=== PATIENT | male | born 1955 | race African-American/Black ===

== ENCOUNTER 2020-03-31 14:28 | Inpatient (IN) | payer BC, OTHER ==
[2020-03-31 15:25] VITALS: BMI 37.0
[2020-03-31] MEDS ORDERED: DEXAMETHASONE SOD PHOSPHATE 4 MG/1 ML VIAL IVPUSH ONE (16:02)
[2020-03-31 16:18] LABS: BASO % 0.3 % (0-2.0); HEMATOCRIT 41.7 % (35.4-49); HEMOGLOBIN 13.5 GM/dL (11.7-16.9); LYMPH % 33.4 % (8-40); MCH 28.3 pg (25.7-33.7); MCHC 32.5 g/dl (32.0-35.9); MEAN CELL VOLUME 87.3 fl (80-96); MEAN PLT VOLUME 7.8 fl (7.5-11.1); MONO % 13.4 % (3.8-10.2); NEUT % 52.9 % (42.8-82.8); PLATELET COUNT 198 K/MM3 (134-434); RBC 4.78 M/mm3 (4.00-5.60); RDW 14.4 % (11.9-15.9); VENOUS PCO2 52.3 mmHg (38-52); VENOUS PH 7.382 (7.310-7.410); WHITE BLOOD COUNT 5.7 K/mm3 (4.0-10.0)
[2020-03-31 16:33] LABS: INR 1.21 (0.83-1.09); PROTHROMBIN TIME (PATIENT) 14.6 SEC (9.7-13.0)
[2020-03-31 16:43] LABS: N-TERMINAL BNP 180.2 pg/ml (5-125)
[2020-03-31 16:48] LABS: ALBUMIN 3.5 g/dl (3.4-5.0)
[2020-03-31 16:53] LABS: BILIRUBIN,TOTAL 0.4 mg/dL (0.2-1); CREATININE 1.8 mg/dL (0.55-1.3); TOT PROT 7.5 g/dl (6.4-8.2)
[2020-03-31] MEDS ORDERED: SODIUM CHLORIDE 0.9% 500 ML INFUS.BAG IV ONE (17:07)
[2020-03-31] MEDS ORDERED: POTASSIUM CHLORIDE ORAL LIQUID 20 MEQ/15 ML PO ONE (17:09)
[2020-03-31] MEDS ORDERED: ACETAMINOPHEN 500 MG TABLET (FP) PO ONE (17:23)
[2020-03-31] MEDS ORDERED: ACETAMINOPHEN 325 MG TABLET (FP) ONE (17:25)
[2020-03-31] MEDS ORDERED: POTASSIUM CHLORIDE ORAL LIQUID 20 MEQ/15 ML ONE (18:18)
[2020-03-31] MEDS ORDERED: SODIUM CHLORIDE 500 ML IV STA (19:18)
[2020-03-31] MEDS ORDERED: ACETAMINOPHEN 325 MG TABLET (FP) PO PRN (19:18)
[2020-03-31] MEDS ORDERED: HEPARIN NA (PORCINE) 5,000 UNITS/ML 1ML VIAL ONE (20:35)
[2020-03-31] MEDS ORDERED: ZINC SULFATE 220 MG CAPSULE (FP) ONE (20:35)
[2020-03-31] MEDS ORDERED: AMPICILLIN NA/SULBACTAM NA 3 GM in SODIUM CHLORIDE 100 ML IVPB SCH (21:00)
[2020-03-31] MEDS ORDERED: ASCORBIC ACID 500 MG TABLET (FP) ONE (21:39)
[2020-03-31] MEDS: CHOLECALCIFEROL (VIT D3) 400 UNIT (10 MCG) TABLET PO SCH (21:46)
[2020-03-31] MEDS: ZINC SULFATE 220 MG CAPSULE (FP) PO SCH (21:46)
[2020-03-31] MEDS: ASCORBIC ACID 500 MG TABLET (FP) PO SCH (21:47)
[2020-03-31] MEDS: HEPARIN NA (PORCINE) 5,000 UNITS/ML 1ML VIAL SQ SCH (21:47)
[2020-03-31] MEDS ORDERED: CLINDAMYCIN 600MG PREMIX IVPB 600 MG/50 ML BAG IVPB ONE (23:35)
[2020-03-31] MEDS: CLINDAMYCIN 600MG PREMIX IVPB 600 MG/50 ML BAG IVPB SCH (23:36)
[2020-04-01 01:26] LABS: BLOOD UREA NITROGEN 27.5 mg/dL (7-18); CALCIUM 7.8 mg/dL (8.5-10.1)
[2020-04-01 01:30] LABS: CREATININE 1.6 mg/dL (0.55-1.3)
[2020-04-01] MEDS ORDERED: CLINDAMYCIN 600MG PREMIX IVPB 600 MG/50 ML BAG IVPB ONE ×2 (02:09→08:12)
[2020-04-01] MEDS ORDERED: SODIUM CHLORIDE 500 ML IV STA (02:09)
[2020-04-01] MEDS: CLINDAMYCIN 600MG PREMIX IVPB 600 MG/50 ML BAG IVPB SCH ×3 (03:08→12:15)
[2020-04-01 03:20] LABS: EPI CELLS 9 /uL (0-25.1); HYALINE CASTS 7 /uL (0-3.1); URINE APPEARANCE CLEAR; URINE BACTERIA 17 /uL (0-1359); URINE BILIRUBIN NEGATIVE (NEGATIVE); URINE COLOR YELLOW; URINE GLUCOSE (UA) NEGATIVE (NEGATIVE); URINE KETONE NEGATIVE (NEGATIVE); URINE LEUK ESTERASE NEGATIVE (NEGATIVE); URINE NITRITE NEGATIVE (NEGATIVE); URINE PROTEIN 2+ (NEGATIVE); URINE RBC 8 /uL (0-23.9); URINE WBC 11 /uL (0-25.8)
[2020-04-01] MEDS ORDERED: HEPARIN NA (PORCINE) 5,000 UNITS/ML 1ML VIAL ONE (05:36)
[2020-04-01] MEDS: HEPARIN NA (PORCINE) 5,000 UNITS/ML 1ML VIAL SQ SCH ×3 (06:22→21:54)
[2020-04-01 06:50] LABS: BASO % 0.1 % (0-2.0); HEMATOCRIT 39.9 % (35.4-49); HEMOGLOBIN 13.2 GM/dL (11.7-16.9); LYMPH % 25.9 % (8-40); MCH 28.9 pg (25.7-33.7); MCHC 33.1 g/dl (32.0-35.9); MEAN CELL VOLUME 87.2 fl (80-96); MEAN PLT VOLUME 7.4 fl (7.5-11.1); MONO % 10.5 % (3.8-10.2); NEUT % 63.5 % (42.8-82.8); PLATELET COUNT 188 K/MM3 (134-434); RBC 4.58 M/mm3 (4.00-5.60); RDW 14.4 % (11.9-15.9); WHITE BLOOD COUNT 5.1 K/mm3 (4.0-10.0)
[2020-04-01 06:54] LABS: ALBUMIN 3.3 g/dl (3.4-5.0); BLOOD UREA NITROGEN 27.6 mg/dL (7-18); CALCIUM 7.8 mg/dL (8.5-10.1); MAGNESIUM 2.3 mg/dL (1.8-2.4)
[2020-04-01 06:57] LABS: CREATININE 1.4 mg/dL (0.55-1.3); PHOSPHOROUS 3.7 mg/dL (2.5-4.9)
[2020-04-01 06:58] LABS: BILIRUBIN,TOTAL 0.4 mg/dL (0.2-1); TOT PROT 7.4 g/dl (6.4-8.2)
[2020-04-01] MEDS ORDERED: DEXAMETHASONE SOD PHOSPHATE 10 MG/1 ML VIAL ONE (08:11)
[2020-04-01] MEDS ORDERED: ZINC SULFATE 220 MG CAPSULE (FP) ONE (08:11)
[2020-04-01] MEDS ORDERED: CHOLECALCIFEROL (VIT D3) 1,000 UNIT (25 MCG) TABLET ONE (08:12)
[2020-04-01] MEDS: MAG HYDROX/ALH/SMC/DPHA/LIDO 240 ML MOUTHWASH MM SCH ×3 (08:15→18:41)
[2020-04-01] MEDS ORDERED: ASCORBIC ACID 500 MG TABLET (FP) ONE (08:16)
[2020-04-01] MEDS ORDERED: DIPHTH,PERTUSS(ACELL),TET 0.5 ML DISP.SYRIN IM ONE (08:18)
[2020-04-01] MEDS: CHOLECALCIFEROL (VIT D3) 400 UNIT (10 MCG) TABLET PO SCH (09:05)
[2020-04-01] MEDS: ASCORBIC ACID 500 MG TABLET (FP) PO SCH ×2 (09:05→21:48)
[2020-04-01] MEDS: ZINC SULFATE 220 MG CAPSULE (FP) PO SCH (09:05)
[2020-04-01] MEDS: DEXAMETHASONE SOD PHOSPHATE 4 MG/1 ML VIAL IVPUSH SCH (09:05)
[2020-04-01] MEDS ORDERED: CLINDAMYCIN 600MG PREMIX IVPB 600 MG/50 ML BAG IVPB SCH (10:15)
[2020-04-01] MEDS ORDERED: VANCOMYCIN HCL 1,500 MG in DEXTROSE 5%-WATER - 500 ML IVPB ONE (11:00)
[2020-04-01] MEDS: ASPIRIN 81 MG CHEWABLE TABLETS PO SCH (12:15)
[2020-04-01] MEDS ORDERED: REMDESIVIR 200 MG in SODIUM CHLORIDE 210 ML IVPB ONE (17:00)
[2020-04-01] MEDS ORDERED: PT OWN MED DRAWER 7, Y5N ONE (21:21)
[2020-04-01] MEDS ORDERED: VANCOMYCIN 1,250 MG in DEXTROSE 5%-WATER - 250 ML IVPB SCH (23:00)
[2020-04-02] MEDS: CLINDAMYCIN 600MG PREMIX IVPB 600 MG/50 ML BAG IVPB SCH ×5 (01:00→20:29)
[2020-04-02] MEDS: MAG HYDROX/ALH/SMC/DPHA/LIDO 240 ML MOUTHWASH MM SCH ×4 (02:41→17:01)
[2020-04-02] MEDS: HEPARIN NA (PORCINE) 5,000 UNITS/ML 1ML VIAL SQ SCH ×3 (06:26→21:03)
[2020-04-02 07:54] LABS: BASO % 0.1 % (0-2.0); LYMPH % 28.9 % (8-40); MCH 29.3 pg (25.7-33.7); MCHC 33.3 g/dl (32.0-35.9); MEAN CELL VOLUME 87.8 fl (80-96); MEAN PLT VOLUME 7.6 fl (7.5-11.1); MONO % 8.6 % (3.8-10.2); NEUT % 62.4 % (42.8-82.8); PLATELET COUNT 188 K/MM3 (134-434); RBC 4.44 M/mm3 (4.00-5.60); RDW 14.2 % (11.9-15.9); WHITE BLOOD COUNT 7.3 K/mm3 (4.0-10.0)
[2020-04-02 07:58] LABS: ALBUMIN 3.1 g/dl (3.4-5.0); BLOOD UREA NITROGEN 21.6 mg/dL (7-18)
[2020-04-02 07:59] LABS: MAGNESIUM 2.2 mg/dL (1.8-2.4)
[2020-04-02 08:00] LABS: CREATININE 1.2 mg/dL (0.55-1.3); PHOSPHOROUS 2.5 mg/dL (2.5-4.9)
[2020-04-02 08:01] LABS: BILIRUBIN,TOTAL 0.5 mg/dL (0.2-1)
[2020-04-02 08:03] LABS: TOT PROT 6.9 g/dl (6.4-8.2)
[2020-04-02] MEDS: ASPIRIN 81 MG CHEWABLE TABLETS PO SCH (09:34)
[2020-04-02] MEDS: ZINC SULFATE 220 MG CAPSULE (FP) PO SCH (09:34)
[2020-04-02] MEDS: CHOLECALCIFEROL (VIT D3) 400 UNIT (10 MCG) TABLET PO SCH (09:34)
[2020-04-02] MEDS: ASCORBIC ACID 500 MG TABLET (FP) PO SCH ×2 (09:35→21:03)
[2020-04-02] MEDS: DEXAMETHASONE SOD PHOSPHATE 4 MG/1 ML VIAL IVPUSH SCH (10:00)
[2020-04-02] MEDS ORDERED: PT OWN MED DRAWER 7, Y5N ONE (16:21)
[2020-04-02] MEDS: REMDESIVIR 100 MG in SODIUM CHLORIDE 230 ML IVPB SCH (16:57)
[2020-04-02] MEDS: FAMOTIDINE 20 MG TABLET PO SCH (21:03)
[2020-04-03] MEDS ORDERED: PT OWN MED DRAWER 7, Y5N ONE ×5 (00:09→16:38)
[2020-04-03] MEDS: CLINDAMYCIN 600MG PREMIX IVPB 600 MG/50 ML BAG IVPB SCH ×4 (00:10→17:57)
[2020-04-03] MEDS: MAG HYDROX/ALH/SMC/DPHA/LIDO 240 ML MOUTHWASH MM SCH ×4 (00:10→17:57)
[2020-04-03] MEDS: HEPARIN NA (PORCINE) 5,000 UNITS/ML 1ML VIAL SQ SCH ×3 (05:54→21:24)
[2020-04-03 07:15] LABS: HEMATOCRIT 38.2 % (35.4-49); HEMOGLOBIN 12.9 GM/dL (11.7-16.9); MCH 29.5 pg (25.7-33.7); MCHC 33.6 g/dl (32.0-35.9); MEAN CELL VOLUME 87.6 fl (80-96); MEAN PLT VOLUME 7.7 fl (7.5-11.1); PLATELET COUNT 210 K/MM3 (134-434); RBC 4.36 M/mm3 (4.00-5.60); RDW 14.1 % (11.9-15.9); WHITE BLOOD COUNT 5.8 K/mm3 (4.0-10.0)
[2020-04-03 07:26] LABS: BLOOD UREA NITROGEN 22.9 mg/dL (7-18); CALCIUM 7.5 mg/dL (8.5-10.1)
[2020-04-03 07:27] LABS: MAGNESIUM 2.3 mg/dL (1.8-2.4)
[2020-04-03 07:29] LABS: PHOSPHOROUS 3.8 mg/dL (2.5-4.9)
[2020-04-03 07:31] LABS: BILIRUBIN,TOTAL 0.4 mg/dL (0.2-1)
[2020-04-03 07:32] LABS: TOT PROT 6.9 g/dl (6.4-8.2)
[2020-04-03] MEDS: ASPIRIN 81 MG CHEWABLE TABLETS PO SCH (09:14)
[2020-04-03] MEDS: DEXAMETHASONE SOD PHOSPHATE 4 MG/1 ML VIAL IVPUSH SCH (09:14)
[2020-04-03] MEDS: TORSEMIDE 10 MG TABLET PO SCH (09:15)
[2020-04-03] MEDS: CHOLECALCIFEROL (VIT D3) 400 UNIT (10 MCG) TABLET PO SCH (09:15)
[2020-04-03] MEDS: ASCORBIC ACID 500 MG TABLET (FP) PO SCH ×2 (09:15→21:24)
[2020-04-03] MEDS: ZINC SULFATE 220 MG CAPSULE (FP) PO SCH (09:15)
[2020-04-03] MEDS: LOSARTAN 50MG/HCTZ 12.5MG 1 TAB PO SCH (09:15)
[2020-04-03] MEDS: FAMOTIDINE 20 MG TABLET PO SCH ×2 (09:20→21:24)
[2020-04-03] MEDS: REMDESIVIR 100 MG in SODIUM CHLORIDE 230 ML IVPB SCH (16:42)
[2020-04-04] MEDS: MAG HYDROX/ALH/SMC/DPHA/LIDO 240 ML MOUTHWASH MM SCH ×4 (00:08→17:52)
[2020-04-04] MEDS: CLINDAMYCIN 600MG PREMIX IVPB 600 MG/50 ML BAG IVPB SCH ×3 (00:09→13:02)
[2020-04-04] MEDS: HEPARIN NA (PORCINE) 5,000 UNITS/ML 1ML VIAL SQ SCH (05:52)
[2020-04-04] MEDS: ASPIRIN 81 MG CHEWABLE TABLETS PO SCH (10:15)
[2020-04-04] MEDS: LOSARTAN 50MG/HCTZ 12.5MG 1 TAB PO SCH (10:15)
[2020-04-04] MEDS: ZINC SULFATE 220 MG CAPSULE (FP) PO SCH (10:15)
[2020-04-04] MEDS: ASCORBIC ACID 500 MG TABLET (FP) PO SCH ×2 (10:15→22:29)
[2020-04-04] MEDS: DEXAMETHASONE SOD PHOSPHATE 4 MG/1 ML VIAL IVPUSH SCH (10:16)
[2020-04-04] MEDS: FAMOTIDINE 20 MG TABLET PO SCH ×2 (10:16→22:29)
[2020-04-04] MEDS: CHOLECALCIFEROL (VIT D3) 400 UNIT (10 MCG) TABLET PO SCH (10:16)
[2020-04-04] MEDS: TORSEMIDE 10 MG TABLET PO SCH (10:16)
[2020-04-04] MEDS ORDERED: PT OWN MED DRAWER 7, Y5N ONE ×2 (11:52→18:36)
[2020-04-04] MEDS ORDERED: metoPROLOL SUCCINATE 25 MG TAB.SR.24H (FP) PO ONE (14:30)
[2020-04-04] MEDS ORDERED: METOPROLOL TARTRATE 5 MG/5 ML VIAL IVPUSH ONE (16:47)
[2020-04-04] MEDS: REMDESIVIR 100 MG in SODIUM CHLORIDE 230 ML IVPB SCH (17:52)
[2020-04-04] MEDS ORDERED: METOPROLOL TARTRATE 25 MG TABLET (FP) PO ONE (17:56)
[2020-04-04] MEDS: APIXABAN 5 MG TABLET PO SCH (22:29)
[2020-04-04] MEDS: CLINDAMYCIN HCL 150 MG CAPSULE (FP) PO SCH (22:30)
[2020-04-05] MEDS: MAG HYDROX/ALH/SMC/DPHA/LIDO 240 ML MOUTHWASH MM SCH ×4 (00:30→17:16)
[2020-04-05] MEDS ORDERED: PT OWN MED DRAWER 7, Y5N ONE ×6 (06:05→17:14)
[2020-04-05] MEDS: CLINDAMYCIN HCL 150 MG CAPSULE (FP) PO SCH ×3 (06:36→21:53)
[2020-04-05 07:05] LABS: HEMATOCRIT 41.9 % (35.4-49); MCH 29.1 pg (25.7-33.7); MCHC 33.4 g/dl (32.0-35.9); MEAN CELL VOLUME 87.2 fl (80-96); MEAN PLT VOLUME 7.8 fl (7.5-11.1); PLATELET COUNT 281 K/MM3 (134-434); RBC 4.81 M/mm3 (4.00-5.60); RDW 14.3 % (11.9-15.9); WHITE BLOOD COUNT 6.9 K/mm3 (4.0-10.0)
[2020-04-05 07:17] LABS: BLOOD UREA NITROGEN 29.9 mg/dL (7-18); CALCIUM 8.1 mg/dL (8.5-10.1)
[2020-04-05 07:20] LABS: CREATININE 1.1 mg/dL (0.55-1.3)
[2020-04-05 07:21] LABS: BILIRUBIN,TOTAL 0.5 mg/dL (0.2-1); TOT PROT 6.9 g/dl (6.4-8.2)
[2020-04-05] MEDS ORDERED: POTASSIUM CHLORIDE TABS 20 MEQ TABLET.ER (FP) PO ONE (08:45)
[2020-04-05] MEDS ORDERED: metoPROLOL SUCCINATE 25 MG TAB.SR.24H (FP) PO SCH ×2 (10:00→11:05)
[2020-04-05] MEDS ORDERED: POTASSIUM CHLORIDE TABS 20 MEQ TABLET.ER (FP) PO SCH (10:15)
[2020-04-05] MEDS ORDERED: KCL 10 MEQ IVPB 10 MEQ/100 ML INFUS.BAG IVPB SCH (10:15)
[2020-04-05] MEDS: DEXAMETHASONE SOD PHOSPHATE 4 MG/1 ML VIAL IVPUSH SCH (10:16)
[2020-04-05] MEDS: ASCORBIC ACID 500 MG TABLET (FP) PO SCH ×2 (10:16→21:50)
[2020-04-05] MEDS: LOSARTAN 50MG/HCTZ 12.5MG 1 TAB PO SCH (10:16)
[2020-04-05] MEDS: APIXABAN 5 MG TABLET PO SCH ×2 (10:16→21:50)
[2020-04-05] MEDS: ASPIRIN 81 MG CHEWABLE TABLETS PO SCH (10:17)
[2020-04-05] MEDS: CHOLECALCIFEROL (VIT D3) 400 UNIT (10 MCG) TABLET PO SCH (10:17)
[2020-04-05] MEDS: ZINC SULFATE 220 MG CAPSULE (FP) PO SCH (10:17)
[2020-04-05] MEDS: FAMOTIDINE 20 MG TABLET PO SCH ×2 (10:17→21:50)
[2020-04-05] MEDS: TORSEMIDE 10 MG TABLET PO SCH (10:21)
[2020-04-05 10:34] LABS: MAGNESIUM 2.2 mg/dL (1.8-2.4)
[2020-04-05] MEDS ORDERED: metoPROLOL SUCCINATE 25 MG TAB.SR.24H (FP) PO ONE (11:06)
[2020-04-05] MEDS: REMDESIVIR 100 MG in SODIUM CHLORIDE 230 ML IVPB SCH (17:16)
[2020-04-06] MEDS: MAG HYDROX/ALH/SMC/DPHA/LIDO 240 ML MOUTHWASH MM SCH ×3 (00:35→12:07)
[2020-04-06] MEDS: CLINDAMYCIN HCL 150 MG CAPSULE (FP) PO SCH ×2 (05:36→14:32)
[2020-04-06 08:12] LABS: HEMATOCRIT 42.6 % (35.4-49); HEMOGLOBIN 14.3 GM/dL (11.7-16.9); MCH 29.3 pg (25.7-33.7); MCHC 33.6 g/dl (32.0-35.9); MEAN CELL VOLUME 87.4 fl (80-96); MEAN PLT VOLUME 7.9 fl (7.5-11.1); PLATELET COUNT 325 K/MM3 (134-434); RBC 4.87 M/mm3 (4.00-5.60); RDW 14.3 % (11.9-15.9); WHITE BLOOD COUNT 8.8 K/mm3 (4.0-10.0)
[2020-04-06 08:46] LABS: ALBUMIN 3.2 g/dl (3.4-5.0); BLOOD UREA NITROGEN 39.6 mg/dL (7-18); CALCIUM 9.1 mg/dL (8.5-10.1)
[2020-04-06 08:50] LABS: CREATININE 1.5 mg/dL (0.55-1.3)
[2020-04-06 08:51] LABS: BILIRUBIN,TOTAL 0.6 mg/dL (0.2-1); TOT PROT 7.1 g/dl (6.4-8.2)
[2020-04-06] MEDS ORDERED: POTASSIUM CHLORIDE TABS 20 MEQ TABLET.ER (FP) PO SCH (10:00)
[2020-04-06] MEDS ORDERED: PT OWN MED DRAWER 7, Y5N ONE ×2 (10:46→14:31)
[2020-04-06] MEDS: CHOLECALCIFEROL (VIT D3) 400 UNIT (10 MCG) TABLET PO SCH (10:56)
[2020-04-06] MEDS: APIXABAN 5 MG TABLET PO SCH (10:57)
[2020-04-06] MEDS: LOSARTAN 50MG/HCTZ 12.5MG 1 TAB PO SCH (10:57)
[2020-04-06] MEDS: FAMOTIDINE 20 MG TABLET PO SCH (10:57)
[2020-04-06] MEDS: TORSEMIDE 10 MG TABLET PO SCH (10:57)
[2020-04-06] MEDS: ASCORBIC ACID 500 MG TABLET (FP) PO SCH (11:00)
[2020-04-06] MEDS: DEXAMETHASONE SOD PHOSPHATE 4 MG/1 ML VIAL IVPUSH SCH (12:06)
[2020-04-06] MEDS: ZINC SULFATE 220 MG CAPSULE (FP) PO SCH (12:30)
[2020-04-06 15:45] VITALS: BP 129/81; PULSE 86; TEMP 98.2
[2020-04-06] MEDS ORDERED: LACTOBACILLUS ACIDOPHILUS 1 TABLET PO SCH (22:00)
== END 2020-04-06 17:28 | disposition home or self-care (01) | DRG 177 ==
LOC: JER 14:28 → JERBED 18:15 → J4W 04-01 11:12
PROVIDERS: ATTEND Internal Medicine
PROC: XW033E5 Introduction of Remdesivir Anti-infective into Peripheral Vein, Percutaneous Approach, New Technology Group 5 (ICD-10-PCS; principal; 2020-04-02)
PROC: XW13325 Transfusion of Convalescent Plasma (Nonautologous) into Peripheral Vein, Percutaneous Approach, New Technology Group 5 (ICD-10-PCS; 2020-04-02)
DX: U07.1 COVID-19 (principal); J96.01 Acute respiratory failure with hypoxia; J12.89 Other viral pneumonia; N17.9 Acute kidney failure, unspecified; I24.8 Other forms of acute ischemic heart disease; K04.7 Periapical abscess without sinus; I10 Essential (primary) hypertension; E66.01 Morbid (severe) obesity due to excess calories; I48.0 Paroxysmal atrial fibrillation; Z68.37 Body mass index [BMI] 37.0-37.9, adult; Z88.0 Allergy status to penicillin; I89.0 Lymphedema, not elsewhere classified; E86.0 Dehydration; E87.6 Hypokalemia
CPT/HCPCS: 36415; 70486-TC; 71045-TC-FY; 71250-TC; 80048; 80053; 80061; 81003; 82550; 82553; 82728; 82803; 82962; 83036; 83615; 83721; 83735; 83880; 84100; 84443; 84484; 85025; 85027; 85379; 85610; 86140; 86850; 86900; 86901; 87040; 87070; 87086; 87205; 93005; 93010; 94761; 99285-25; C9399; C9803; J1644; U0003